=== PATIENT | male | born 1960 | race African-American/Black ===

== ENCOUNTER 2024-07-14 00:53 | Inpatient (IN) | payer MEDICARE, OTHER ==
[2024-07-14] MEDS ORDERED: Acetaminophen 325 MG TAB PO PRN (02:17)
[2024-07-14] MEDS ORDERED: Acetaminophen 650 MG Suppository PR PRN (02:17)
[2024-07-14] MEDS ORDERED: Ondansetron ODT 4 MG TAB PO PRN (02:17)
[2024-07-14] MEDS ORDERED: Calcium Carbonate 500 MG ChewTAB PO PRN (02:17)
[2024-07-14] MEDS ORDERED: Ondansetron PF 4 MG/2 ML Vial IVP PRN (02:17)
[2024-07-14 02:45] LABS: Troponin I 0.076 ng/mL (< 0.028)
[2024-07-14 04:59] LABS: #Basophils Less than 0.03 10x3/uL (0.0-0.2); #Eosinophils Less than 0.03 10x3/uL (0.0-0.7); %Basophils 0.2 % (0.0-1.0); %Lymphocytes 4.8 % (21.0-51.0); %Monocytes 8.5 % (0.0-10.0); %Neutrophils 85.1 % (42.0-75.0); Hematocrit 49.4 % (42.0-52.0); Mean Corpuscular HGB CONC 32.4 g/dL (32.0-36.0); Mean Corpuscular Volume 95.7 fL (78.0-98.0); Mean Platelet Volume 12.1 fL (7.4-10.4); Platelet Count 142 10x3/uL (130-400); RBC Distribution Width 16.9 % (11.5-14.5); Red Blood Cell (RBC) Count 5.16 mill/uL (4.70-6.10)
[2024-07-14 05:29] LABS: ALT (SGPT) 36 U/L (Less than 45); AST (SGOT) 70 U/L (11-34); Albumin 3.3 g/dL (3.1-4.5); Alkaline Phosphatase 83 U/L (40-110); Anion Gap 18 mmol/L (10-20); BUN (Urea Nitrogen) 34 mg/dL (8.4-25.7); Calc. Creatinine Clearance 0 mL/min (70-130); Calcium 9.1 mg/dL (7.8-10.44); Carbon Dioxide 25 mmol/L (23-31); Chloride 105 mmol/L (98-107); Estimated GFR 68; Globulin 3.4 g/dL (2.4-3.5); Glucose 95 mg/dL (80-115); Potassium 4.3 mmol/L (3.5-5.1); Protein, Total 6.7 g/dL (5.8-8.1); Sodium 144 mmol/L (136-145)
[2024-07-14 06:38] VITALS: BMI 26.9
[2024-07-14] MEDS: Furosemide 40 MG (4 mL) VIAL SLOW IVP SCH (07:04)
[2024-07-14] MEDS: Famotidine 20 MG TAB PO SCH (09:18)
[2024-07-14] MEDS: Sertraline 100 MG TAB PO SCH (09:19)
[2024-07-14] MEDS: Valsartan 80 MG TAB PO SCH (09:19)
[2024-07-14] MEDS: Empagliflozin 10 MG TAB PO SCH (09:19)
[2024-07-14] MEDS: Metoprolol Succinate XL 50 MG ER.TAB PO SCH (09:19)
[2024-07-14] MEDS: Ziprasidone 20 MG CAP PO SCH (09:19)
[2024-07-14] MEDS: Famotidine/PF 20 mg/2ml Vial SLOW IVP SCH (09:21)
[2024-07-14 09:55] LABS: Amphetamine Not Detected (NotDetected); Barbiturates Screen Not Detected (NotDetected); Benzodiazepine Screen Not Detected (NotDetected); Cocaine Metabolite Screen Not Detected (NotDetected); Methadone Not Detected (NotDetected); Methamphetamine Not Detected (NotDetected); Opiate Screen Not Detected (NotDetected); Oxycodone Screen Not Detected (NotDetected); Phencyclidine (PCP) Not Detected (NotDetected); THC/Cannabinoid Screen Detected (NotDetected); Tricyclic Screen Not Detected (NotDetected)
[2024-07-14 12:12] VITALS: BMI 26.9
[2024-07-14] MEDS: Atorvastatin Calcium 40 MG TAB PO SCH (20:42)
[2024-07-15 04:23] LABS: #Basophils Less than 0.03 10x3/uL (0.0-0.2); #Eosinophils Less than 0.03 10x3/uL (0.0-0.7); %Basophils 0.1 % (0.0-1.0); %Lymphocytes 4.5 % (21.0-51.0); %Monocytes 8.4 % (0.0-10.0); %Neutrophils 86.5 % (42.0-75.0); Hematocrit 47.4 % (42.0-52.0); Hemoglobin 15.3 g/dL (14.0-18.0); Mean Corpuscular HGB CONC 32.3 g/dL (32.0-36.0); Mean Corpuscular Hemoglobin 30.7 pg (27.0-31.0); Mean Corpuscular Volume 95.2 fL (78.0-98.0); Mean Platelet Volume 11.5 fL (7.4-10.4); Platelet Count 121 10x3/uL (130-400); RBC Distribution Width 17.1 % (11.5-14.5); Red Blood Cell (RBC) Count 4.98 mill/uL (4.70-6.10)
[2024-07-15 05:16] LABS: Anion Gap 16 mmol/L (10-20); BUN (Urea Nitrogen) 30 mg/dL (8.4-25.7); Calc. Creatinine Clearance 73 mL/min (70-130); Calcium 8.7 mg/dL (7.8-10.44); Carbon Dioxide 28 mmol/L (23-31); Chloride 102 mmol/L (98-107); Estimated GFR 74; Glucose 92 mg/dL (80-115); Potassium 3.4 mmol/L (3.5-5.1); Sodium 143 mmol/L (136-145)
[2024-07-16 04:56] LABS: #Basophils Less than 0.03 10x3/uL (0.0-0.2); #Eosinophils Less than 0.03 10x3/uL (0.0-0.7); %Eosinophils 0.2 % (0.0-10.0); %Lymphocytes 7.3 % (21.0-51.0); %Monocytes 11.9 % (0.0-10.0); %Neutrophils 80.1 % (42.0-75.0); Hematocrit 42.7 % (42.0-52.0); Hemoglobin 14.1 g/dL (14.0-18.0); Mean Corpuscular Hemoglobin 31.1 pg (27.0-31.0); Mean Corpuscular Volume 94.3 fL (78.0-98.0); Mean Platelet Volume 11.7 fL (7.4-10.4); Platelet Count 111 10x3/uL (130-400); Red Blood Cell (RBC) Count 4.53 mill/uL (4.70-6.10)
[2024-07-16 05:27] LABS: Anion Gap 13 mmol/L (10-20); BUN (Urea Nitrogen) 27 mg/dL (8.4-25.7); Calc. Creatinine Clearance 69 mL/min (70-130); Calcium 8.4 mg/dL (7.8-10.44); Carbon Dioxide 31 mmol/L (23-31); Chloride 98 mmol/L (98-107); Estimated GFR 73; Glucose 87 mg/dL (80-115); Potassium 3.1 mmol/L (3.5-5.1); Sodium 139 mmol/L (136-145)
[2024-07-16] MEDS: Potassium Chloride 20 MEQ TAB PO SCH ×2 (10:43→16:15)
[2024-07-17 07:17] LABS: Anion Gap 12 mmol/L (10-20); BUN (Urea Nitrogen) 34 mg/dL (8.4-25.7); Calc. Creatinine Clearance 72 mL/min (70-130); Calcium 8.4 mg/dL (7.8-10.44); Carbon Dioxide 32 mmol/L (23-31); Chloride 97 mmol/L (98-107); Estimated GFR 74; Glucose 83 mg/dL (80-115); Potassium 3.4 mmol/L (3.5-5.1); Sodium 138 mmol/L (136-145)
[2024-07-18] MEDS: Sacubitril 24MG/Valsartan 26 MG TAB PO SCH (22:22)
[2024-07-19 05:10] LABS: INR-International Normal Ratio 1.3; Prothrombin Time 16.6 sec (12.0-14.7)
[2024-07-19 05:11] LABS: PTT 32.5 sec (22.9-36.1)
[2024-07-19 05:32] LABS: Anion Gap 14 mmol/L (10-20); BUN (Urea Nitrogen) 34 mg/dL (8.4-25.7); Calc. Creatinine Clearance 75 mL/min (70-130); Calcium 8.6 mg/dL (7.8-10.44); Carbon Dioxide 34 mmol/L (23-31); Chloride 99 mmol/L (98-107); Estimated GFR 83; Glucose 104 mg/dL (80-115); Potassium 3.7 mmol/L (3.5-5.1); Sodium 143 mmol/L (136-145)
[2024-07-19] MEDS ORDERED: Sodium Bicarbonate 2.5 MEQ/5 ML SDV ONE (09:16)
[2024-07-19] MEDS ORDERED: Lidocaine 1% PF 5 ML VIAL ONE (09:16)
[2024-07-19] MEDS: Spironolactone 25 MG TAB PO SCH (11:25)
[2024-07-19 17:06] VITALS: BP 99/63; TEMP 97.6
== END 2024-07-19 20:10 | disposition home or self-care (01) | DRG 291 ==
LOC: ERS 00:53 → 2NO 01:49
PROVIDERS: ADMIT Student in an Organized Health Care Education/Training Program; ATTEND Family Medicine
PROC: 0W9G3ZZ Drainage of Peritoneal Cavity, Percutaneous Approach (ICD-10-PCS; principal; 2024-07-14)
DX: I13.0 Hypertensive heart and chronic kidney disease with heart failure and stage 1 through stage 4 chronic kidney disease, or unspecified chronic kidney disease (principal); I50.43 Acute on chronic combined systolic (congestive) and diastolic (congestive) heart failure; R18.8 Other ascites; N18.30 Chronic kidney disease, stage 3 unspecified; F20.9 Schizophrenia, unspecified; F12.10 Cannabis abuse, uncomplicated; I08.1 Rheumatic disorders of both mitral and tricuspid valves; I25.5 Ischemic cardiomyopathy; I42.0 Dilated cardiomyopathy; Z79.899 Other long term (current) drug therapy; Z79.82 Long term (current) use of aspirin
CPT/HCPCS: 36415; 36416; 49083; 80048; 80053; 80306; 83735; 83880; 84443; 84484; 85025; 85610; 85730; 93306; 94660; 99285; J1940